=== PATIENT | male | born 1960 | race Caucasian/White ===

== ENCOUNTER → 2020-10-22 | Outpatient (CLI) | payer MEDICARE, OTHER ==
[~2020-10-22] MED LIST: ELIQ5TAB PO; ISOVUE-300 61% 50ML VIAL As Ordered ONE; LIDOCAINE 1% MDV 20ML VIAL As Ordered ONE; MIDAZOLAM INJ 2MG/2ML VIAL (J2250 PER 1MG) As Ordered ONE; OMEP1CAP73 PO; fentaNYL 100 MCG/2 ML INJECTION (J3010) As Ordered ONE
--- NOTE | 2020-10-22 13:20 | ROOPDOC ---
[facility] Report Of Operation Report of Operation DATE OF PROCEDURE: 10/22/20 PREPROCEDURE DIAGNOSES: End-stage renal disease with difficulty cannulating left Cresencio fistula POSTPROCEDURE DIAGNOSES: Same PROCEDURE: 1. Ultrasound-guided access left cephalic vein 2. Left upper extremity fistulogram and central venogram 3. Left cephalic vein angioplasty 8 x 100 [place] balloon 4. Completion venogram SURGEON: Jose Cameron MD ANESTHESIA: Local anesthesia 3 mL lidocaine. Moderate intravenous conscious sedation was administered by Dr. Cameron. The patient was independently monitored by a registered nurse assigned to the Department of radiology using automated blood pressure, EKG, and pulse oximetry. A detailed sedation record is permanently stored in the hospital information system. The following is a brief sedation record: Start time 12:31, stop time 12:52, Versed 1 mg IV, fentanyl 50 g IV. CONTRAST: 25 mL Isovue-300 INDICATION FOR PROCEDURE: This is a very pleasant 60-year-old gentleman with end-stage renal disease currently dialyzing with a left Cresencio fistula. He's had increased difficulties with cannulation infiltration. Risk benefits alternatives to a fistulogram potential intervention were explained to the patient needs agreeable to proceed. Informed consent was obtained. INTERPRETATION: 1. The AV anastomosis in the cephalic vein over the forearm are widely patent noted on ultrasound. Please see images. 2. The left upper extremity fistulogram and central venogram reveals that the cephalic vein is widely patent with good flow through the median cubital vein into both the basilic and cephalic vein over the upper arm. The cephalic vein over the biceps is widely patent with one area of 40% stenosis, otherwise no areas of significant stenosis and is widely patent over the shoulder with good flow in the subclavian vein. The basilic vein is also widely patent with good flow in the axillary vein. The central veins are widely patent with good flow back to the heart. 3. After angioplasty of the left cephalic vein over the bicep with an 8 x 100 [place] balloon for long three-minute inflations, initially we had a little bit of vasospasm, but this relaxed with a second angioplasty at low atmospheres. Now the patient has widely patent inflow, no pulsatility in the fistula, an excellent thrill. REPORT OF OPERATION: Patient was brought to the angiographic suite in stable condition. Left upper extremity is prepped and draped in a sterile fashion. A timeout was performed. Local anesthesia was administered to the skin and subcutaneous tissue over the cephalic vein. Ultrasound was used to examine that is cephalic vein from the AV anastomosis to the antecubital crease. We noted widely patent inflow from the radial artery into the cephalic vein at the AV anastomosis. Please see imaging. We also noted widely patent inflow over the cephalic vein in the upper arm. No areas of stenosis were noted. There are some areas of aneurysmal dilation with the patient has frequent access, but these are widely patent. More proximally at the median cubital vein the patient was noted to have widely patent flow with one focal area of stenosis, see interpretation above. We exchange the sheath over Glidewire for 6 [place] sheath and flushed sheath with saline. Sedation was administered without complication. In August 15 100 [place] balloon was advanced across the cephalic vein over the bicep. Three- minute inflations was performed, and following this we noted improvement in no focal area of stenosis but some spasm in the vein. We angioplastied again at a very low atmospheres for another 2 minutes and following this there is widely patent inflow through the fistula. We had an excellent thrill in the fistula, no pulsatility. We then placed a [id number] suture at the sheath exit site removed the sheath and hold pressure and sterile dressings were applied. Good hemostasis was noted. The patient was then taken to recovery in stable condition. He tolerated the procedure and the sedation well. ESTIMATED BLOOD LOSS: Approximately 2 mL. COMPLICATIONS: None. PLAN: Okay to use AV access for dialysis. Okay to resume home diet and medications. We appreciate the opportunity to participate in the care of this patient. JOSE CAMERON MD Oct 22, 2020 13:20
[2020-10-22 13:45] VITALS: BP 162/89
== END ==
LOC: M IRPRO 11:23
PROVIDERS: ATTEND Surgery Vascular Surgery
DX: T82.590A Other mechanical complication of surgically created arteriovenous fistula, initial encounter (principal); N18.6 End stage renal disease; X58.XXXA Exposure to other specified factors, initial encounter; Z79.01 Long term (current) use of anticoagulants; Z79.899 Other long term (current) drug therapy; Z99.2 Dependence on renal dialysis
CPT/HCPCS: 36902; 99152; C1725; C1769; C1894; J1644; J2250; J3010; Q9967

== ENCOUNTER → 2021-03-26 | Outpatient (CLI) | payer MEDICARE, OTHER ==
[~2021-03-26] MED LIST changes: -ISOVUE-300 61% 50ML VIAL As Ordered ONE; -LIDOCAINE 1% MDV 20ML VIAL As Ordered ONE; -MIDAZOLAM INJ 2MG/2ML VIAL (J2250 PER 1MG) As Ordered ONE; -fentaNYL 100 MCG/2 ML INJECTION (J3010) As Ordered ONE
== END ==
LOC: M LABSMTC 11:05
PROVIDERS: ATTEND Ophthalmology
DX: Z01.818 Encounter for other preprocedural examination (principal); Z11.52 Encounter for screening for COVID-19

== ENCOUNTER → 2022-02-03 | Outpatient (CLI) | payer MEDICARE, OTHER ==
[~2022-02-03] MED LIST changes: +ISOVUE-300 61% 50ML VIAL As Ordered ONE; +ISOVUE-M 300 61% 15ML VIAL As Ordered ONE; +LIDOCAINE 1% MDV 20ML VIAL As Ordered ONE; +MIDAZOLAM INJ 2MG/2ML VIAL (J2250 PER 1MG) As Ordered ONE; +ceFAZolin 2 GM/D5W 50 ML IV BAG (J0690 PER 500MG) As Ordered ONE; +fentaNYL 100 MCG/2 ML INJECTION As Ordered ONE
[2022-02-03 09:07] LABS: HEMATOCRIT 41.2 % (42.0-52.0); HEMOGLOBIN 13.6 g/dl (13.5-17.5); MEAN CORPUSCULAR HEMOGLOBIN 34.4 pg (27.0-33.0); MEAN CORPUSCULAR VOLUME 104.3 fl (80.0-96.0); PLATELET COUNT, AUTOMATED 200 10^3/uL (150-450); RED BLOOD COUNT 3.95 10^6/uL (4.30-6.10); WHITE BLOOD COUNT 7.3 10^3/uL (4.0-10.0)
[2022-02-03 09:21] LABS: INR 0.92; PROTHROMBIN TIME 12.8 SECONDS (12.7-14.5)
[2022-02-03 09:40] LABS: CALCIUM LEVEL 9.4 MG/DL (8.8-10.2); CREATININE FOR GFR 7.62 MG/DL (0.70-1.30); GLOMERULAR FILTRATION RATE 7.7 (>49); POTASSIUM SERUM 5.2 MEQ/L (3.5-5.1)
[2022-02-03 10:46] VITALS: BP 150/81
== END ==
LOC: M IRPRO 08:24
PROVIDERS: ATTEND Surgery Vascular Surgery
DX: N18.6 End stage renal disease (principal); Z99.2 Dependence on renal dialysis; T82.590A Other mechanical complication of surgically created arteriovenous fistula, initial encounter
CPT/HCPCS: 36902; 80048; 85027; 85610; 86850; 86900; 86901; C1769; C1894; C2623; J0690; J1644; J2250; J3010; Q9967

== ENCOUNTER → 2022-07-21 | Outpatient (CLI) | payer OTHER ==
[~2022-07-21] MED LIST changes: -ISOVUE-300 61% 50ML VIAL As Ordered ONE; -ISOVUE-M 300 61% 15ML VIAL As Ordered ONE; -LIDOCAINE 1% MDV 20ML VIAL As Ordered ONE; -MIDAZOLAM INJ 2MG/2ML VIAL (J2250 PER 1MG) As Ordered ONE; -ceFAZolin 2 GM/D5W 50 ML IV BAG (J0690 PER 500MG) As Ordered ONE; -fentaNYL 100 MCG/2 ML INJECTION As Ordered ONE
== END ==
LOC: M PLAIMG 08:02
PROVIDERS: ATTEND Physician Assistant
DX: Z01.818 Encounter for other preprocedural examination (principal); N18.6 End stage renal disease

== ENCOUNTER → 2022-08-12 | Outpatient (CLI) | payer MEDICARE, OTHER | LOC: M CARPUL 10:09 | PROVIDERS: ATTEND Physician Assistant | DX: Z01.818 Encounter for other preprocedural examination (principal) ==

== ENCOUNTER 2022-11-25 11:12 | Emergency (ER) | payer MEDICARE, OTHER ==
[~2022-11-25] VITALS: Ht 175.3 cm; Wt 102.8 kg
[~2022-11-25 11:12] MED LIST changes: +OMEP40CA5 PO
[2022-11-25 14:56] LABS: BASO % 0.6 % (0.0-1.0); EOS # 0.5 10^3/uL (0.0-0.5); EOS % 7.6 % (0.0-3.0); HEMATOCRIT 41.2 % (42.0-52.0); HEMOGLOBIN 13.4 g/dl (13.5-17.5); LYMPH # 2.1 10^3/uL (1.5-5.0); LYMPH % 30.6 % (24.0-44.0); MEAN CORPUSCULAR HEMOGLOBIN 34.5 pg (27.0-33.0); MEAN CORPUSCULAR HGB CONC 32.5 g/dl (32.0-36.5); MEAN CORPUSCULAR VOLUME 106.2 fl (80.0-96.0); MONO # 0.6 10^3/uL (0.0-0.8); MONO % 8.8 % (2.0-8.0); NEUTROPHILS # 3.5 10^3/uL (1.5-8.5); NEUTROPHILS % 51.8 % (36.0-66.0); PLATELET COUNT, AUTOMATED 224 10^3/uL (150-450); RED BLOOD COUNT 3.88 10^6/uL (4.30-6.10); WHITE BLOOD COUNT 6.8 10^3/uL (4.0-10.0)
[2022-11-25 15:15] LABS: ALBUMIN 3.3 G/DL (3.2-5.2); BILIRUBIN,DIRECT 0.1 MG/DL (<0.4); BILIRUBIN,TOTAL 0.3 MG/DL (0.3-1.2); CALCIUM LEVEL 9.8 MG/DL (8.3-10.6); CREATININE FOR GFR 4.65 MG/DL (0.70-1.30); GLOMERULAR FILTRATION RATE 13.6 (>49); POTASSIUM SERUM 4.3 MMOL/L (3.5-5.1)
[2022-11-25 16:36] VITALS: BP 139/64; TEMP 98.4; O2SAT 97
== END 2022-11-25 16:43 | disposition home or self-care (01) ==
LOC: M ED 11:12
DX: N23 Unspecified renal colic (principal); M54.30 Sciatica, unspecified side; F10.10 Alcohol abuse, uncomplicated; Z87.442 Personal history of urinary calculi; Z79.899 Other long term (current) drug therapy

== ENCOUNTER 2022-12-02 09:53 | Day surgery (SDC) | payer MEDICARE, OTHER ==
[~2022-12-02] VITALS: Ht 175.3 cm; Wt 101.8 kg
[~2022-12-02 09:53] MED LIST changes: +NS 1,000 ML IV ONE
[2022-12-02] MEDS ORDERED: propofoL 200 MG/20 ML VIAL As Ordered ONE ×2 (11:15→11:33)
[2022-12-02] MEDS ORDERED: LIDOCAINE 2% 100MG/5ML SDV (FOR ANES.) As Ordered ONE (11:15)
[2022-12-02] MEDS ORDERED: ePHEDrine SULFATE 25 MG/5 ML(5MG/ML) SYRINGE As Ordered ONE (11:33)
[2022-12-02 11:38] VITALS: TEMP 98
[2022-12-02 12:09] VITALS: BP 115/74; O2SAT 99
== END 2022-12-02 12:23 | disposition home or self-care (01) ==
LOC: M OPP 09:53
PROVIDERS: ATTEND Surgery
DX: Z12.11 Encounter for screening for malignant neoplasm of colon (principal); D12.3 Benign neoplasm of transverse colon; K63.5 Polyp of colon; K64.0 First degree hemorrhoids; Z79.01 Long term (current) use of anticoagulants

== ENCOUNTER 2023-03-25 22:43 | Emergency (ER) | payer MEDICARE, BC, OTHER ==
[~2023-03-25] VITALS: Ht 175.3 cm; Wt 103.6 kg
[~2023-03-25 22:43] MED LIST changes: -NS 1,000 ML IV ONE
[2023-03-26] MEDS ORDERED: ASPIRIN 81MG CHEW TABLET PO ONE (02:35)
[2023-03-26 03:09] LABS: BASO % 0.5 % (0.0-1.0); EOS # 0.8 10^3/uL (0.0-0.5); HEMATOCRIT 38.7 % (42.0-52.0); HEMOGLOBIN 12.5 g/dl (13.5-17.5); LYMPH # 2.1 10^3/uL (1.5-5.0); LYMPH % 33.3 % (24.0-44.0); MEAN CORPUSCULAR HEMOGLOBIN 34.3 pg (27.0-33.0); MEAN CORPUSCULAR HGB CONC 32.3 g/dl (32.0-36.5); MEAN CORPUSCULAR VOLUME 106.3 fl (80.0-96.0); MONO # 0.6 10^3/uL (0.0-0.8); MONO % 9.7 % (2.0-8.0); NEUTROPHILS # 2.8 10^3/uL (1.5-8.5); NEUTROPHILS % 43.3 % (36.0-66.0); PLATELET COUNT, AUTOMATED 193 10^3/uL (150-450); RED BLOOD COUNT 3.64 10^6/uL (4.30-6.10); WHITE BLOOD COUNT 6.4 10^3/uL (4.0-10.0)
[2023-03-26 03:34] LABS: BLOOD UREA NITROGEN 37 MG/DL (9-23); CALCIUM LEVEL 9.2 MG/DL (8.3-10.6); CARBON DIOXIDE LEVEL 31 MMOL/L (20-31); CHLORIDE LEVEL 103 MMOL/L (98-107); CK-MB VALUE MASS < 1.0 NG/ML (<3.6); CPK CREATINE PHOSPHOKINASE 85 U/L (46-171); GLOMERULAR FILTRATION RATE 9.2 (>49); GLUCOSE, FASTING 84 MG/DL (74-106); MB/CK RELATIVE INDEX 1.17 (< OR =4); POTASSIUM SERUM 5.4 MMOL/L (3.5-5.1); SODIUM LEVEL 143 MMOL/L (136-145)
[2023-03-26 06:30] VITALS: BP 184/83; TEMP 97.3
[2023-03-26 06:31] VITALS: O2SAT 97
== END 2023-03-26 07:15 | disposition home or self-care (01) ==
LOC: M ED 22:43
DX: I44.1 Atrioventricular block, second degree (principal); I44.4 Left anterior fascicular block; M79.602 Pain in left arm; I44.7 Left bundle-branch block, unspecified; E11.9 Type 2 diabetes mellitus without complications; N18.6 End stage renal disease; Z79.83 Long term (current) use of bisphosphonates

== ENCOUNTER → 2023-07-13 | Outpatient (CLI) | payer MEDICARE, BC, OTHER | LOC: M RAD 10:25 | PROVIDERS: ATTEND Family Medicine | DX: M25.561 Pain in right knee (principal); M85.861 Other specified disorders of bone density and structure, right lower leg; M85.862 Other specified disorders of bone density and structure, left lower leg ==

== ENCOUNTER → 2024-03-24 | Outpatient (CLI) | payer MEDICARE, OTHER ==
[~2024-03-24] VITALS: Ht 175.3 cm; Wt 99.0 kg
[~2024-03-24] MED LIST changes: +ACETAMINOPHEN 325 MG TAB PO PRN; +HEPARIN 1,000UNITS/ML 10ML VIAL (FOR RADIOLOGY & DIALYSIS ONLY) As Ordered ONE; +ISOVUE-300 61% 100ML VIAL As Ordered ONE; +LIDOCAINE 1% MDV 20ML VIAL As Ordered ONE; +MIDAZOLAM INJ 2MG/2ML VIAL As Ordered ONE; +NS 1,000 ML IV SCH; +ONDANSETRON 4MG 2ML VIAL IV PRN; +PERCOCET 5MG/325MG TAB PO PRN; +fentaNYL 100 MCG/2 ML INJECTION As Ordered ONE
[2024-03-24 10:53] LABS: HEMATOCRIT 41.8 % (42.0-52.0); HEMOGLOBIN 13.8 g/dl (13.5-17.5); MEAN CORPUSCULAR HEMOGLOBIN 34.6 pg (27.0-33.0); MEAN CORPUSCULAR VOLUME 104.8 fl (80.0-96.0); PLATELET COUNT, AUTOMATED 230 10^3/uL (150-450); RED BLOOD COUNT 3.99 10^6/uL (4.30-6.10); WHITE BLOOD COUNT 8.3 10^3/uL (4.0-10.0)
[2024-03-24 11:01] LABS: INR 0.99; PROTHROMBIN TIME 13.4 SECONDS (12.5-14.5)
[2024-03-24 11:16] LABS: CALCIUM LEVEL 10.2 MG/DL (8.3-10.6); CREATININE FOR GFR 5.41 MG/DL (0.70-1.30); GLOMERULAR FILTRATION RATE 11.3 (>49); POTASSIUM SERUM 4.3 MMOL/L (3.5-5.1)
[2024-03-24 12:15] VITALS: TEMP 97.6
[2024-03-24 17:30] VITALS: BP 139/77; O2SAT 100
== END ==
LOC: M IRPRO 09:49
PROVIDERS: ATTEND Internal Medicine Nephrology
DX: N18.6 End stage renal disease (principal); R26.89 Other abnormalities of gait and mobility; M54.50 Low back pain, unspecified; M47.814 Spondylosis without myelopathy or radiculopathy, thoracic region; M47.816 Spondylosis without myelopathy or radiculopathy, lumbar region; M16.0 Bilateral primary osteoarthritis of hip
CPT/HCPCS: 36903; 72114; 73502; 80048; 85027; 85610; 99152; 99153; C1769; C1894; C2623; J2250; J3010; Q9967

== ENCOUNTER 2024-06-14 04:50 | Observation (INO) | payer MEDICARE, OTHER, BC ==
[~2024-06-14] VITALS: Ht 175.3 cm; Wt 103.9 kg
[~2024-06-14 04:50] MED LIST changes: -ACETAMINOPHEN 325 MG TAB PO PRN; -HEPARIN 1,000UNITS/ML 10ML VIAL (FOR RADIOLOGY & DIALYSIS ONLY) As Ordered ONE; -ISOVUE-300 61% 100ML VIAL As Ordered ONE; -LIDOCAINE 1% MDV 20ML VIAL As Ordered ONE; -MIDAZOLAM INJ 2MG/2ML VIAL As Ordered ONE; -NS 1,000 ML IV SCH; -ONDANSETRON 4MG 2ML VIAL IV PRN; -PERCOCET 5MG/325MG TAB PO PRN; -fentaNYL 100 MCG/2 ML INJECTION As Ordered ONE
[2024-06-14 04:54] VITALS: TEMP 97.8
[2024-06-14 06:03] LABS: BASO # 0.1 10^3/uL (0.0-0.2); BASO % 0.9 % (0.0-1.0); EOS % 13.7 % (0.0-3.0); HEMATOCRIT 33.2 % (42.0-52.0); HEMOGLOBIN 10.7 g/dl (13.5-17.5); LYMPH # 1.6 10^3/uL (1.5-5.0); LYMPH % 21.4 % (24.0-44.0); MEAN CORPUSCULAR HEMOGLOBIN 33.5 pg (27.0-33.0); MEAN CORPUSCULAR HGB CONC 32.2 g/dl (32.0-36.5); MEAN CORPUSCULAR VOLUME 104.1 fl (80.0-96.0); MONO # 0.7 10^3/uL (0.0-0.8); MONO % 8.7 % (2.0-8.0); NEUTROPHILS # 4.1 10^3/uL (1.5-8.5); NEUTROPHILS % 54.9 % (36.0-66.0); PLATELET COUNT, AUTOMATED 199 10^3/uL (150-450); RED BLOOD COUNT 3.19 10^6/uL (4.30-6.10); WHITE BLOOD COUNT 7.5 10^3/uL (4.0-10.0)
[2024-06-14 06:32] LABS: CALCIUM LEVEL 8.7 MG/DL (8.3-10.6); CREATININE FOR GFR 11.45 MG/DL (0.70-1.30); GLOMERULAR FILTRATION RATE 4.8 (>49); POTASSIUM SERUM 4.8 MMOL/L (3.5-5.1)
[2024-06-14] MEDS ORDERED: LIDOCAINE 1% SDV 5ML VIAL SC PRN (08:55)
[2024-06-14] MEDS ORDERED: HEPARIN 1,000UNITS/ML 10ML VIAL (FOR RADIOLOGY & DIALYSIS ONLY) IV PRN (08:55)
[2024-06-14] MEDS ORDERED: SODIUM CHLORIDE 0.9% 1000 ML IV PRN (08:55)
[2024-06-14] MEDS ORDERED: ACE65ERTAB PO (09:10)
[2024-06-14] MEDS ORDERED: HOME MED LIST COMPLETE! XX SCH (09:10)
[2024-06-14] MEDS ORDERED: ACETAMINOPHEN 650MG ER TAB (TYLENOL ARTHRITIS) PO PRN (10:45)
[2024-06-14 11:15] VITALS: BP 154/73; O2SAT 96
[2024-06-14] MEDS: HEPARIN 1,000UNITS/ML 10ML VIAL (FOR RADIOLOGY & DIALYSIS ONLY) XX SCH (13:30)
[2024-06-15] MEDS ORDERED: PANTOPRAZOLE 40MG TAB (PROTONIX) PO SCH (09:00)
== END 2024-06-14 15:57 | disposition home or self-care (01) ==
LOC: M ED 04:50 → M ED INP 04:51
PROVIDERS: ADMIT Student in an Organized Health Care Education/Training Program; ATTEND Student in an Organized Health Care Education/Training Program
DX: N18.6 End stage renal disease (principal); I12.0 Hypertensive chronic kidney disease with stage 5 chronic kidney disease or end stage renal disease; E66.01 Morbid (severe) obesity due to excess calories; Z98.84 Bariatric surgery status; Z86.711 Personal history of pulmonary embolism; D64.9 Anemia, unspecified; I44.1 Atrioventricular block, second degree; Z79.899 Other long term (current) drug therapy; E11.9 Type 2 diabetes mellitus without complications
CPT/HCPCS: 80047; 80048; 85025; 93005; 99285; G0378

== ENCOUNTER → 2024-08-08 | Outpatient (CLI) | payer MEDICARE, BC, OTHER ==
[~2024-08-08] MED LIST changes: +ACE65ERTAB PO
== END ==
LOC: M SOG 08:51
PROVIDERS: ATTEND Physician Assistant
DX: M17.0 Bilateral primary osteoarthritis of knee (principal)

== ENCOUNTER → 2024-12-05 | Outpatient (REF) | payer MEDICARE, BC, OTHER ==
[2024-12-05 18:15] LABS: CHOLESTEROL LEVEL 202.0 MG/DL (<200); CHOLESTEROL RISK RATIO 4.95 (<5); LDL CHOLESTEROL 127.2 MG/DL (<100); NON-HDL-C 161.2 MG/DL; TRIGLYCERIDES LEVEL 170.0 MG/DL (<150)
== END ==
LOC: M SFHCLERA 09:56
PROVIDERS: ATTEND Internal Medicine
DX: I25.10 Atherosclerotic heart disease of native coronary artery without angina pectoris (principal)

== ENCOUNTER 2025-04-04 05:27 | Emergency (ER) | payer MEDICARE, OTHER ==
[~2025-04-04] VITALS: Ht 175.3 cm; Wt 102.3 kg
[~2025-04-04 05:27] MED LIST changes: -ACE65ERTAB PO; +ACET-1593 PO
[2025-04-04 05:28] VITALS: TEMP 98.2
[2025-04-04 06:00] LABS: BASO # 0.1 10^3/uL (0.0-0.2); BASO % 0.8 % (0.0-1.0); EOS # 1.0 10^3/uL (0.0-0.5); EOS % 13.3 % (0.0-3.0); LYMPH # 1.4 10^3/uL (1.5-5.0); LYMPH % 18.9 % (24.0-44.0); MONO # 0.7 10^3/uL (0.0-0.8); MONO % 9.7 % (2.0-8.0); NEUTROPHILS # 4.1 10^3/uL (1.5-8.5); NEUTROPHILS % 57.0 % (36.0-66.0); PLATELET COUNT, AUTOMATED 197 10^3/uL (150-450)
[2025-04-04 06:29] LABS: ALT/SGPT < 9 U/L (7.0-40); AST/SGOT 10 U/L (<34); CALCIUM LEVEL 8.5 MG/DL (8.3-10.6); CARBON DIOXIDE LEVEL 25 MMOL/L (20-31); CHLORIDE LEVEL 104 MMOL/L (98-107); CK-MB VALUE MASS 1.5 NG/ML (<3.6); CREATININE FOR GFR 7.72 MG/DL (0.70-1.30); GLOMERULAR FILTRATION RATE 7.1 (>49); POTASSIUM SERUM 4.5 MMOL/L (3.5-5.1); SODIUM LEVEL 142 MMOL/L (136-145)
[2025-04-04 06:30] LABS: CPK CREATINE PHOSPHOKINASE 68 U/L (46-171); MB/CK RELATIVE INDEX 2.20 (< OR =4)
[2025-04-04 07:31] LABS: CK-MB VALUE MASS 1.6 NG/ML (<3.6); CPK CREATINE PHOSPHOKINASE 59.0 U/L (46-171); MB/CK RELATIVE INDEX 2.71 (< OR =4)
[2025-04-04] MEDS ORDERED: HOME MED LIST COMPLETE! XX SCH (09:25)
[2025-04-04 10:16] VITALS: O2SAT 97
[2025-04-04] MEDS ORDERED: ISOVUE-370 76% 100 ML VIAL As Ordered ONE (10:34)
[2025-04-04 11:09] VITALS: BP 154/80
== END 2025-04-04 11:15 | disposition home or self-care (01) ==
LOC: M ED 05:27
DX: R07.9 Chest pain, unspecified (principal); N18.6 End stage renal disease; I44.1 Atrioventricular block, second degree; I44.4 Left anterior fascicular block; E66.9 Obesity, unspecified; Z99.2 Dependence on renal dialysis; Z98.84 Bariatric surgery status; Z86.718 Personal history of other venous thrombosis and embolism; Z86.711 Personal history of pulmonary embolism; Z79.899 Other long term (current) drug therapy